=== PATIENT | female | born 1950 | race American Indian/Alaskan Native ===

== ENCOUNTER 2020-04-02 11:08 | Outpatient (CLI) | payer MEDICARE ==
--- NOTE | 2020-04-02 12:50 | XRay Report ---
ABDOMEN 2 VIEWS INDICATION / CLINICAL INFORMATION: ABDOMEN PAIN. COMPARISON: None available. FINDINGS: TUBES / LINES: None. BOWEL GAS PATTERN: No significant abnormality. Moderate fecal burden. FREE AIR / EXTRALUMINAL GAS: None seen. ADDITIONAL FINDINGS: No significant additional findings. CHEST: Visualized chest shows no significant abnormality. IMPRESSION: 1. No significant abnormality. 2. Moderate fecal burden. Signer Name: Gabriel Yates MD Signed: 04/02/2020 12:46 PM Workstation Name: [id number]
== END 2020-04-02 11:09 | disposition home or self-care (01) ==
LOC: XRAY 11:08
PROVIDERS: ATTEND Family Medicine
DX: R10.9 Unspecified abdominal pain (principal); R10.819 Abdominal tenderness, unspecified site
CPT/HCPCS: 74019